=== PATIENT | female | born 1995 | race Native Hawaiian/Other Pacific Islander ===

== ENCOUNTER 2022-03-23 05:26 | Day surgery (SDC) | payer SELFPAY ==
[~2022-03-23] VITALS: Ht 167.6 cm; Wt 104.5 kg
[2022-03-23] MEDS ORDERED: ACET325C5 PO (05:34)
[2022-03-23] MEDS ORDERED: IBUP-1114 PO (05:34)
[2022-03-23] MEDS ORDERED: MORPHINE 4 MG/ML 1ML VIAL/SYRINGE IV PRN (05:45)
[2022-03-23] MEDS ORDERED: HOME MED LIST COMPLETE! XX SCH (06:30)
[2022-03-23] MEDS ORDERED: NS 1,000 ML IV SCH (07:10)
[2022-03-23] MEDS ORDERED: BUPIVACAINE/EPIN 0.25% 30 ML VIAL As Ordered ONE (07:44)
[2022-03-23] MEDS ORDERED: PIPERACILLIN/TAZOBACTAM SOD 3.375 GM in D5W MINI-BAG PLUS 50 ML IV ONE (08:00)
[2022-03-23] MEDS ORDERED: dexameTHASONE 4 MG/ML 1ML VIAL (J1100 PER 1MG) As Ordered ONE (08:46)
[2022-03-23] MEDS ORDERED: fentaNYL 100 MCG/2 ML INJECTION As Ordered ONE (08:46)
[2022-03-23] MEDS ORDERED: propofoL 200 MG/20 ML VIAL As Ordered ONE (08:46)
[2022-03-23] MEDS ORDERED: MIDAZOLAM INJ 2MG/2ML VIAL (J2250 PER 1MG) As Ordered ONE (08:46)
[2022-03-23] MEDS ORDERED: ACETAMINOPHEN 1000MG 100ML IV BAG As Ordered ONE (08:46)
[2022-03-23] MEDS ORDERED: LIDOCAINE 2% 100MG/5ML SDV (FOR ANES.) As Ordered ONE (08:46)
[2022-03-23] MEDS ORDERED: SUGAMMADEX SODIUM 500 MG/5 ML VIAL (BRIDION) As Ordered ONE (08:46)
[2022-03-23] MEDS ORDERED: ROCURONIUM BROMIDE 50 MG/5 ML VIAL As Ordered ONE (08:46)
[2022-03-23] MEDS ORDERED: ONDANSETRON 4MG 2ML VIAL As Ordered ONE (08:46)
[2022-03-23] MEDS ORDERED: PHENYLephrine 500MCG 5ML (100MCG/ML) SYRINGE As Ordered ONE (08:49)
[2022-03-23] MEDS ORDERED: KETOROLAC 60MG 2ML VIAL As Ordered ONE (09:04)
[2022-03-23] MEDS ORDERED: ONDANSETRON 4MG 2ML VIAL IV PRN (09:30)
[2022-03-23] MEDS ORDERED: MORPHINE 2 MG/ML 1ML VIAL IV PRN ×2 (09:30)
[2022-03-23] MEDS ORDERED: NORCO, ANEXSIA 5/325MG TABLET (HYDROcodone/ACETAMINOPHEN) PO PRN ×2 (09:30)
[2022-03-23] MEDS ORDERED: ACETAMINOPHEN TAB 650MG DOSE (2X325MG) PO PRN (09:30)
[2022-03-23 10:44] VITALS: O2SAT 98
[2022-03-23] MEDS: NS 1,000 ML IV SCH ×2 (10:51→22:37)
[2022-03-23] MEDS: PIPERACILLIN/TAZOBACTAM SOD 3.375 GM in D5W MINI-BAG PLUS 50 ML IV SCH ×2 (13:58→21:14)
[2022-03-23] MEDS: KETOROLAC 30 MG/ML 1ML VIAL IV SCH ×2 (13:58→21:15)
[2022-03-23] MEDS: PANTOPRAZOLE 40MG VIAL IV SCH (21:15)
[2022-03-23 22:00] VITALS: BP 106/56
[2022-03-24 02:00] VITALS: BP 107/60
[2022-03-24] MEDS: KETOROLAC 30 MG/ML 1ML VIAL IV SCH ×2 (02:57→08:25)
[2022-03-24] MEDS: PIPERACILLIN/TAZOBACTAM SOD 3.375 GM in D5W MINI-BAG PLUS 50 ML IV SCH ×2 (02:57→08:29)
[2022-03-24 06:00] VITALS: BP 129/74
[2022-03-24] MEDS: PANTOPRAZOLE 40MG VIAL IV SCH (08:29)
== END 2022-03-24 10:21 | disposition home or self-care (01) ==
LOC: M ED 05:26 → EDBD 05:26 → M ED 07:29 → M SDC 07:29 → M MSPAV 10:27 → M ED 03-24 10:21
PROVIDERS: ATTEND Surgery
DX: K35.890 Other acute appendicitis without perforation or gangrene (principal); E66.9 Obesity, unspecified
CPT/HCPCS: 44970; 88304; 96361; 96365; 96366; 96375; 96376; 99284; C9113; J0131; J1100; J1885; J2250; J2270; J2370; J2405; J2543; J3010

== ENCOUNTER 2023-03-13 13:05 | Emergency (ER) | payer OTHER, SELFPAY ==
[~2023-03-13] VITALS: Ht 167.6 cm; Wt 93.6 kg
[~2023-03-13 13:05] MED LIST: ACET325C5 PO; IBUP-1114 PO
[2023-03-13] MEDS ORDERED: NS 1,000 ML IV ONE (14:45)
[2023-03-13] MEDS ORDERED: ACETAMINOPHEN *IV* 1,000 MG in IV 1 EA IV ONE (14:45)
[2023-03-13 15:49] LABS: BASO # 0.1 10^3/uL (0.0-0.2); BASO % 0.2 % (0.0-1.0); EOS # 0.2 10^3/uL (0.0-0.5); EOS % 0.9 % (0.0-3.0); HEMATOCRIT 35.5 % (36.0-47.0); LYMPH % 4.6 % (24.0-44.0); MEAN CORPUSCULAR HEMOGLOBIN 28.9 pg (27.0-33.0); MEAN CORPUSCULAR HGB CONC 33.8 g/dl (32.0-36.5); MEAN CORPUSCULAR VOLUME 85.5 fl (80.0-96.0); MONO # 0.4 10^3/uL (0.0-0.8); MONO % 1.7 % (2.0-8.0); NEUTROPHILS # 19.1 10^3/uL (1.5-8.5); NEUTROPHILS % 91.8 % (36.0-66.0); PLATELET COUNT, AUTOMATED 354 10^3/uL (150-450); RED BLOOD COUNT 4.15 10^6/uL (4.00-5.40); WHITE BLOOD COUNT 20.8 10^3/uL (4.0-10.0)
[2023-03-13 15:53] LABS: APPEARANCE, URINE HAZY (CLEAR); BACTERIA, URINE AUTO 1+ (NEGATIVE); BILIRUBIN, URINE AUTO NEGATIVE (NEGATIVE); BLOOD, URINE BLOOD 1+ (NEGATIVE); COLOR, URINE YELLOW (YELLOW); GLUCOSE, URINE (UA) AUTO NEGATIVE (NEGATIVE); KETONE, URINE AUTO 1+ mg/dL (NEGATIVE); LEUKOCYTE ESTERASE, URINE AUTO 1+ (NEGATIVE); MUCUS, URINE SMALL (NEGATIVE); NITRITE, URINE AUTO NEGATIVE (NEGATIVE); PROTEIN, URINE AUTO NEGATIVE (NEGATIVE); RBC, URINE AUTO 2 /HPF (0-3); SPECIFIC GRAVITY URINE AUTO 1.015 (1.002-1.035); SQUAMOUS EPITHELIAL CELL UR AU 2 /HPF (0-6); WBC, URINE AUTO 2 /HPF (0-3)
[2023-03-13] MEDS ORDERED: IPRATROPIUM 0.5MG/ALBUTEROL 2.5MG INH SOL UD 3ML (DUONEB) NEB PRN (15:55)
[2023-03-13 16:16] LABS: ALBUMIN 3.1 G/DL (3.2-5.2); ALKALINE PHOSPHATASE 57 U/L (46-116); ALT/SGPT < 9 U/L (7.0-40); AST/SGOT < 8 U/L (<34); BILIRUBIN,TOTAL 0.3 MG/DL (0.3-1.2); BLOOD UREA NITROGEN 5 MG/DL (9-23); CARBON DIOXIDE LEVEL 22 MMOL/L (20-31); CHLORIDE LEVEL 107 MMOL/L (98-107); CREATININE FOR GFR 0.47 MG/DL (0.55-1.30); GLOMERULAR FILTRATION RATE > 60.0 (>60); GLUCOSE, FASTING 82 MG/DL (60-100); SODIUM LEVEL 139 MMOL/L (136-145); TOTAL PROTEIN 6.7 G/DL (5.7-8.2)
[2023-03-13 16:22] LABS: MONO REFLEX EBV COMP NEGATIVE (NEGATIVE)
[2023-03-13 16:38] LABS: ERYTHROCYTE SEDIMENTATION RATE 62 mm/hr (0-20)
[2023-03-13 19:27] VITALS: BP 102/54; TEMP 98.4; O2SAT 95
[2023-03-15 18:09] LABS: EBV AB TO NUCLEAR ANTIGEN >600.0 U/mL (0.0-17.9); EBV VIRAL CAPSID AG IgM <36.0 U/mL (0.0-35.9)
== END 2023-03-13 19:25 | disposition home or self-care (01) ==
LOC: EDBD 13:05 → M ED 13:05
DX: O26.812 Pregnancy related exhaustion and fatigue, second trimester (principal); O26.892 Other specified pregnancy related conditions, second trimester; R05.9 Cough, unspecified; J02.9 Acute pharyngitis, unspecified; R10.9 Unspecified abdominal pain; Z3A.17 17 weeks gestation of pregnancy
CPT/HCPCS: 71045; 76815; 80053; 81001; 83605; 85025; 85652; 86140; 86308; 86664; 86665; 86901; 87040; 87086; 87486; 87581; 87633; 87798; 87880; 96374; 99284; J0131

== ENCOUNTER → 2023-04-04 | Outpatient (CLI) | payer OTHER | LOC: M RAD 13:46 | PROVIDERS: ATTEND Obstetrics & Gynecology Obstetrics | DX: Z34.02 Encounter for supervision of normal first pregnancy, second trimester (principal) ==

== ENCOUNTER → 2023-07-25 | Outpatient (CLI) | payer OTHER | LOC: M RAD 14:49 | PROVIDERS: ATTEND Obstetrics & Gynecology Obstetrics | DX: O26.843 Uterine size-date discrepancy, third trimester (principal); Z3A.36 36 weeks gestation of pregnancy ==